=== PATIENT | female | born 1995 | race Caucasian/White ===

== ENCOUNTER 2017-03-05 05:36 | Emergency (ER) | payer OTHER ==
[~2017-03-05] VITALS: Ht 170.2 cm; Wt 104.5 kg
[2017-03-05] MEDS ORDERED: ZOLO50TA PO (05:46)
[2017-03-05] MEDS ORDERED: MOBI15TA PO (05:46)
[2017-03-05] MEDS ORDERED: ZOLO25TA PO (05:46)
[2017-03-05 06:19] LABS: CALCIUM OXALATE CRYSTALS SMALL
[2017-03-05 06:31] LABS: CONTROL LINE UCG INT CTR LINE PRESENT
[2017-03-05] MEDS ORDERED: NS 1,000 ML IV ONE (06:45)
[2017-03-05] MEDS ORDERED: ONDANSETRON 4MG/2ML VIAL (J2405) IV ONE (06:45)
[2017-03-05] MEDS ORDERED: KETOROLAC 30 MG/ML VIAL (J1885) IV ONE (06:45)
[2017-03-05 06:55] LABS: BASO % 0.4 % (0.0-1.0); EOS # 0.2 10^3/uL (0.0-0.50); EOS % 1.7 % (0.0-3.0); IMMATURE GRANULOCYTE % 0.3 % (0-0); LYMPH % 21.3 % (24.0-44.0); MEAN CORPUSCULAR HEMOGLOBIN 29.9 pg (27.0-33.0); MEAN CORPUSCULAR HGB CONC 34.1 g/dl (32.0-36.5); MEAN CORPUSCULAR VOLUME 87.9 fl (80.0-96.0); MONO # 0.8 10^3/uL (0.0-0.8); MONO % 8.4 % (0.0-5.0); NEUTROPHILS # 6.5 10^3/uL (1.8-7.7); NEUTROPHILS % 67.9 % (36.0-66.0); PLATELET COUNT, AUTOMATED 208 10^3/uL (150-450); RED CELL DISTRIBUTION WIDTH 11.5 % (11.5-14.5); WHITE BLOOD COUNT 9.5 10^3/uL (4.0-10.0)
[2017-03-05 07:25] LABS: ALBUMIN 3.4 GM/DL (3.2-5.2); ALBUMIN/GLOBULIN RATIO 1.06 (1.00-1.93); ALKALINE PHOSPHATASE 86 U/L (45-117); ALT/SGPT 14 U/L (12-78); AMYLASE 41 U/L (25-115); ANION GAP 7 MEQ/L (8-16); AST/SGOT 11 U/L (7-37); BILIRUBIN,DIRECT 0.1 MG/DL (0.0-0.2); BILIRUBIN,TOTAL 0.3 MG/DL (0.2-1.0); BLOOD UREA NITROGEN 15 MG/DL (7-18); CALCIUM LEVEL 8.7 MG/DL (8.5-10.1); CARBON DIOXIDE LEVEL 28 MEQ/L (21-32); CHLORIDE LEVEL 105 MEQ/L (98-107); CREATININE FOR GFR 0.84 MG/DL (0.55-1.02); GLOMERULAR FILTRATION RATE > 60.0 (>60); GLUCOSE, FASTING 94 MG/DL (70-105); POTASSIUM SERUM 3.8 MEQ/L (3.5-5.1); SODIUM LEVEL 140 MEQ/L (136-145); TOTAL PROTEIN 6.6 GM/DL (6.4-8.2)
--- NOTE | 2017-03-05 08:10 | REPUSA ---
CLINICAL HISTORY: Abdominal pain. TECHNIQUE: Multiple axial, sagittal and coronal CT images were obtained through the abdomen and pelvi s without administration of oral or IV contrast material. COMMENTS: The liver is of uniform attenuation without mass or defect. There is no intra or extrahepatic biliary ductal dilatation. The spleen is normal. The gallbladder is within normal limits. The pancreas is of normal contour and attenuation characteristics. There is no evidence of adrenal mass. 4mm obstructing stone of the right ureter at L4/L5 level. Mild right hydronephrosis. There is no evidence for appendicitis. There is no bowel wall thickening. No evidence for small or la rge bowel obstruction. There is no evidence of abdominal ascites or lymphadenopathy. There is no evidence of intrinsic or extrinsic bladder mass. There is no pelvic ascites or lymphadeno matthew. Moderate amount of fecal residue in the large bowels. Images of the lung bases show no evidence of pleural or parenchymal mass. There are no pleural effusi ons. The bony structures are free of lytic or blastic lesions. Multilevel degenerative changes are seen in volving the thoracolumbar spine. Scattered calcifications are seen involving the aorta and major branches compatible with atherosclero sis. IMPRESSION: Obstructing stone of the right ureter. Thank you for your kind referral of this patient.
[2017-03-05] MEDS ORDERED: ZOFR4TAB3 PO ×2 (08:23→08:30)
[2017-03-05] MEDS ORDERED: NORCOTAB PO ×2 (08:23→08:30)
[2017-03-05] MEDS ORDERED: FLOM5CAP PO ×2 (08:23→08:30)
[2017-03-05] MEDS ORDERED: CIPR-249 PO ×2 (08:23→08:30)
[2017-03-05] MEDS ORDERED: TAMSULOSIN 0.4 MG CAP PO ONE (08:30)
[2017-03-05] MEDS ORDERED: CIPROFLOXACIN 500 MG TAB PO ONE (08:30)
[2017-03-05 08:39] VITALS: BP 147/86
== END 2017-03-05 08:41 | disposition home or self-care (01) ==
LOC: M ED 05:36
DX: N30.00 Acute cystitis without hematuria (principal); N21.1 Calculus in urethra; F41.9 Anxiety disorder, unspecified; Z79.899 Other long term (current) drug therapy; Z88.2 Allergy status to sulfonamides
CPT/HCPCS: 74176; 80048; 80076; 81001; 82150; 83690; 84703; 85025; 87086; 96361; 96374; 96375; 99284; J1885; J2405

== ENCOUNTER 2017-04-19 04:22 | Emergency (ER) | payer OTHER | END 2017-04-19 04:47 | disposition left against medical advice (07) | LOC: M ED 04:22 | DX: R10.9 Unspecified abdominal pain (principal); Z53.21 Procedure and treatment not carried out due to patient leaving prior to being seen by health care provider ==